=== PATIENT | female | born 1970 | race Caucasian/White ===

== ENCOUNTER 2017-01-31 11:30 | Inpatient (IN) | payer OTHER ==
[2017-01-31 12:19] VITALS: BMI 31.8
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
[2017-01-31] MEDS ORDERED: MENTHOL/PHENOL 1 EACH UD MM PRN (14:10)
[2017-01-31] MEDS ORDERED: MAGNESIUM HYDROX 2400MG/30ML ORAL SUSPENSION 30 ML CUP PO PRN (14:10)
[2017-01-31] MEDS ORDERED: MAG HYDROX/AL HYDROX/SIMETH 30 ML UNIT-DOSE CUP PO PRN (14:10)
[2017-01-31] MEDS ORDERED: ACETAMINOPHEN 325 MG TABLET (FP) PO PRN (14:10)
[2017-01-31] MEDS ORDERED: MAGNESIUM CITRATE 300 ML BOTTLE PO PRN (14:10)
[2017-01-31] MEDS ORDERED: guaiFENesin/D-METHORPHAN HB 10 ML UNIT-DOSE CUPS PO PRN (14:10)
[2017-01-31] MEDS ORDERED: hydrOXYzine PAMOATE 50 MG CAPSULE (FP) PO PRN (14:10)
[2017-01-31] MEDS ORDERED: P-EPHED 60MG/TRIPROLIDI 2.5MG TABLET PO PRN (14:10)
[2017-01-31] MEDS ORDERED: LOPERAMIDE HCL 2 MG CAPSULE PO PRN (14:10)
[2017-01-31] MEDS ORDERED: IBUPROFEN 400 MG TABLET (FP) PO PRN (14:10)
[2017-01-31] MEDS ORDERED: NICOTINE POLACRILEX 4 MG GUM BUC PRN (14:10)
[2017-01-31] MEDS ORDERED: METHADONE HCL 10 MG TABLET (FOR DETOX USE ONLY) PO ONE ×2 (14:46→23:00)
--- NOTE | 2017-01-31 15:42 | CONSULT ---
[facility] Psychiatric Consult - Data Date of interview: 01/31/17 Admission source: [facility] Identifying data: This is 46 years old [place] with no psychiatric hospitalization history intoxicatewd with: Opioids, Klonopin and Nicotine Substance Abuse History: - Smoking Cessation. Smoking history: Current every day smoker. Have you smoked in the past 12 months: Yes. Aproximately how many cigarettes per day: 4. Hx Chewing Tobacco Use: No. Initiated information on smoking cessation: Yes. 'Breaking Loose' booklet given: 01/31/17. - Substance & Tx. History. Hx Alcohol Use: No. Hx Substance Use: Yes. Substance Use Type : Heroin Medical History: Denies significant medical issues Psychiatric History: Patient reports history of depression and anaxiety, reports taking prior to admikssion: Prozac 20mg poqd Physical/Sexual Abuse/Trauma History: Denies Additional Comment: Prozac 20mg poqd Mental Status Exam - Mental Status Exam Alert and Oriented to: Person Cognitive Function: Fair Patient Appearance: Well Groomed Mood: Anxious Affect: Mood Congruent Patient Behavior: Cooperative Speech Pattern: Appropriate Voice Loudness: Normal Thought Process: Goal Oriented Thought Disorder: Being Controlled Hallucinations: Denies Suicidal Ideation: Denies Homicidal Ideation: Denies Insight/Judgement: Fair Sleep: Difficulty falling asleep Appetite: Weight gain Muscle strength/Tone: Normal Gait/Station: Normal Additional Comments: Prozac 20mg poqd Psychiatric Findings - Problem List ([place] 1, 2,3) (1) Nicotine dependence Current Visit: Yes Status: Chronic Qualifiers: Nicotine product type: cigarettes Substance use status: uncomplicated Qualified Code(s): F17.210 - Nicotine dependence, cigarettes, uncomplicated (2) Opioid dependence with withdrawal Current Visit: Yes Status: Chronic (3) Cocaine dependence Current Visit: No Status: Active (4) Drug-induced mood disorder Current Visit: Yes Status: Acute - Initial Treatment Plan Initial Treatment Plan: Prozac 20mg poqd
[2017-01-31] MEDS: diazePAM 5 MG TABLET PO PRN (15:55)
[2017-01-31 18:08] LABS: URINE APPEARANCE CLEAR; URINE BILIRUBIN NEGATIVE (NEGATIVE); URINE BLOOD NEGATIVE (NEGATIVE); URINE COLOR STRAW; URINE GLUCOSE (UA) NEGATIVE (NEGATIVE); URINE KETONE NEGATIVE (NEGATIVE); URINE LEUK ESTERASE NEGATIVE (NEGATIVE); URINE NITRITE NEGATIVE (NEGATIVE); URINE PROTEIN NEGATIVE (NEGATIVE); URINE UROBILINOGEN NEGATIVE E.U./dl (0.2-1.0)
[2017-01-31] MEDS: BACITRACIN 0.9 GM PACKET TP SCH (22:15)
[2017-01-31] MEDS: THIAMINE HCL 100 MG TABLET (FP) PO SCH (22:16)
[2017-01-31] MEDS: diphenhydrAMINE HCL 50 MG CAPSULE PO PRN (22:17)
[2017-01-31] MEDS: VITAMINS A AND D TOPICAL OINTMENT 60 GM TUBE TP SCH (22:39)
[2017-02-01] MEDS: VITAMINS A AND D TOPICAL OINTMENT 60 GM TUBE TP SCH ×5 (01:05→23:09)
[2017-02-01] MEDS ORDERED: METHADONE HCL 10 MG TABLET (FOR DETOX USE ONLY) PO ONE (10:00)
[2017-02-01 10:10] LABS: MCH 22.3 pg (25.7-33.7); MCHC 30.4 g/dl (32.0-36.0); MEAN CELL VOLUME 73.4 fl (80-96); MEAN PLT VOLUME 8.9 fl (7.5-11.1); PLATELET COUNT 265 K/MM3 (134-434); WHITE BLOOD COUNT 8.1 K/mm3 (4.0-10.0)
[2017-02-01] MEDS: NICOTINE 21 MG/24 HOURS TOPICAL PATCH TD SCH (10:25)
[2017-02-01] MEDS: BACITRACIN 0.9 GM PACKET TP SCH ×2 (10:25→23:09)
[2017-02-01] MEDS: PRENATAL VITAMINS W/ FOLIC ACID TABLET (FP) PO SCH (10:25)
[2017-02-01] MEDS ORDERED: CYCLOBENZAPRINE HCL 10 MG TABLET (FP) PO PRN (10:34)
--- NOTE | 2017-02-01 10:34 | PN ---
S COWS - Scale Resting Pulse: 0= [place] 80 or Below Sweatin=Flushed/Facial Moisture Restless Observation: 1= Difficult to Sit Still Pupil Size: 0= Normal to Room Light Bone or Joint Aches: 2= Severe Diffuse Aches Runny Nose/ Eye Tearin= Runny Nose/Eyes GI Upset > 30mins: 2= Nausea/Diarrhea Tremor Observation of Outstretched Hands: 2= Slight Tremor Visible Yawning Observation: 2= >3x During Session Anxiety or Irritability: 2=Irritable/Anxious Goose Flesh Skin: 3=Piloerection COWS Score: 18 S Progress Note (SOAP) Subjective: ear clogged sweats shakes interrupted sleep chills muscle cramps back pain Objective: 02/01/17 10:33 Vital Signs Temperature 96.8 F L 02/01/17 06:53 Pulse Rate 60 02/01/17 06:53 Respiratory Rate 18 02/01/17 06:53 Blood Pressure 124/76 02/01/17 06:53 O2 Sat by Pulse Oximetry (%) Laboratory Tests 01/31/17 14:00 Urine Color Straw Urine Appearance Clear Urine pH 6.0 Ur Specific [place] 1.004 Urine Protein Negative Urine Glucose (UA) Negative Urine Ketones Negative Urine Blood Negative Urine Nitrite Negative Urine Bilirubin Negative Urine Urobilinogen Negative Ur Leukocyte Esterase Negative labs pending awake/alert ambulating no acute distress Assessment: 02/01/17 10:33 withdrawal sx Plan: continue detox increase fluids labs pending flexiril prn lidocaine patch debrox ear drops
[2017-02-01] MEDS: LIDOCAINE 5% TOPICAL PATCH TP SCH (10:59)
[2017-02-01 11:06] LABS: ALBUMIN 3.8 g/dl (3.4-5.0); ALK PHOS 75 U/L (45-117); ANION GAP 8 (8-16); BILIRUBIN,TOTAL 0.3 mg/dL (0.2-1.0); CALCIUM 8.4 mg/dL (8.5-10.1); CO2 25 mmol/L (21-32); CREATININE 0.7 mg/dL (0.55-1.02); GLUCOSE,RANDOM 82 mg/dL (74-106); SGOT/AST 13 U/L (15-37); SGPT/ALT 18 U/L (12-78); TOT PROT 7.5 g/dl (6.4-8.2)
[2017-02-01 11:24] LABS: HIV 1 & 2 AB NEGATIVE; HIV 1 AGp24 NEGATIVE
[2017-02-01] MEDS: CARBAMIDE PEROXIDE 6.5% OTIC 15 ML BOTTLE AU SCH ×2 (12:00→23:10)
[2017-02-01] MEDS: THIAMINE HCL 100 MG TABLET (FP) PO SCH (23:09)
[2017-02-02] MEDS: VITAMINS A AND D TOPICAL OINTMENT 60 GM TUBE TP SCH ×4 (06:50→23:38)
--- NOTE | 2017-02-02 08:28 | EKG ---
Test Reason : Blood Pressure : / mmHG Vent. Rate : 061 BPM Atrial Rate : 061 BPM P-R Int : 130 ms QRS Dur : 082 ms QT Int : 476 ms P-R-T Axes : 058 -11 025 degrees QTc Int : 479 ms NORMAL SINUS RHYTHM NORMAL ECG NO PREVIOUS ECGS AVAILABLE Confirmed by KRISTINE HALL MD ([id number]) on 02/02/2017 8:27:39 AM Referred By: Confirmed By:KRISTINE HALL MD
[2017-02-02] MEDS ORDERED: METHADONE HCL 5 MG TABLET (FOR DETOX USE ONLY) PO ONE (10:00)
[2017-02-02] MEDS: CARBAMIDE PEROXIDE 6.5% OTIC 15 ML BOTTLE AU SCH ×2 (10:00→22:29)
[2017-02-02] MEDS: diazePAM 5 MG TABLET PO PRN (10:23)
[2017-02-02] MEDS: PRENATAL VITAMINS W/ FOLIC ACID TABLET (FP) PO SCH (10:23)
[2017-02-02] MEDS: BACITRACIN 0.9 GM PACKET TP SCH ×2 (10:23→22:29)
[2017-02-02] MEDS: NICOTINE 21 MG/24 HOURS TOPICAL PATCH TD SCH (10:24)
--- NOTE | 2017-02-02 11:04 | PN ---
BHS COWS - Scale Resting Pulse: 0= [place] 80 or Below Sweatin=Flushed/Facial Moisture Restless Observation: 1= Difficult to Sit Still Pupil Size: 1= Pupils >than Normal Bone or Joint Aches: 2= Severe Diffuse Aches Runny Nose/ Eye Tearin= Nasal Congestion GI Upset > 30mins: 2= Nausea/Diarrhea Tremor Observation of Outstretched Hands: 2= Slight Tremor Visible Yawning Observation: 1= 1-2x During Session Anxiety or Irritability: 2=Irritable/Anxious Goose Flesh Skin: 0=Smooth Skin COWS Score: 14 BHS Progress Note (SOAP) Subjective: interrupted sleep, nausea, lbp, leg pains Objective: 02/02/17 11:03 Vital Signs Temperature 97.9 F 02/02/17 06:39 Pulse Rate 71 02/02/17 10:22 Respiratory Rate 18 02/02/17 10:22 Blood Pressure 124/68 02/02/17 10:22 O2 Sat by Pulse Oximetry (%) Laboratory Tests 01/31/17 01/31/17 02/01/17 06:00 14:00 06:00 WBC 8.1 D RBC 3.92 Hgb 8.7 L Hct 28.7 L MCV 73.4 L MCHC 30.4 L RDW 18.0 H D Plt Count 265 D MPV 8.9 Sodium Potassium Chloride Carbon Dioxide Anion Gap BUN Creatinine Creat Clearance w eGFR Random Glucose Calcium Total Bilirubin AST ALT Alkaline Phosphatase Total Protein Albumin Urine Color Straw Urine Appearance Clear Urine pH 6.0 Ur Specific [place] 1.004 Urine Protein Negative Urine Glucose (UA) Negative Urine Ketones Negative Urine Blood Negative Urine Nitrite Negative Urine Bilirubin Negative Urine Urobilinogen Negative Ur Leukocyte Esterase Negative RPR Titer HIV 1&2 Antibody Screen Negative HIV P24 Antigen Negative 02/01/17 02/01/17 06:00 06:00 WBC RBC Hgb Hct MCV MCHC RDW Plt Count MPV Sodium 139 Potassium 3.6 Chloride 106 Carbon Dioxide 25 Anion Gap 8 BUN 14 D Creatinine 0.7 Creat Clearance w eGFR > 60 Random Glucose 82 Calcium 8.4 L Total Bilirubin 0.3 D AST 13 L ALT 18 Alkaline Phosphatase 75 Total Protein 7.5 Albumin 3.8 Urine Color Urine Appearance Urine pH Ur Specific [place] Urine Protein Urine Glucose (UA) Urine Ketones Urine Blood Urine Nitrite Urine Bilirubin Urine Urobilinogen Ur Leukocyte Esterase RPR Titer Nonreactive HIV 1&2 Antibody Screen HIV P24 Antigen pt aox3 in nad ambulating Assessment: 02/02/17 11:03 withdrawal sx;s Plan: cont. detox increase fluids flexeril 10mg tid clonidine 0.1 mg bid
[2017-02-02] MEDS: LIDOCAINE 5% TOPICAL PATCH TP SCH (11:35)
[2017-02-02] MEDS: THIAMINE HCL 100 MG TABLET (FP) PO SCH (22:28)
[2017-02-02] MEDS: diphenhydrAMINE HCL 50 MG CAPSULE PO PRN (22:30)
[2017-02-03] MEDS: VITAMINS A AND D TOPICAL OINTMENT 60 GM TUBE TP SCH (05:37)
[2017-02-03] MEDS: diazePAM 5 MG TABLET PO PRN (05:41)
[2017-02-03 09:38] VITALS: BP 107/50; PULSE 80; TEMP 98.2
[2017-02-03] MEDS ORDERED: METHADONE HCL 5 MG TABLET (FOR DETOX USE ONLY) PO ONE (10:00)
[2017-02-03] MEDS: PRENATAL VITAMINS W/ FOLIC ACID TABLET (FP) PO SCH (10:22)
[2017-02-03] MEDS: LIDOCAINE 5% TOPICAL PATCH TP SCH (10:23)
[2017-02-03] MEDS: BACITRACIN 0.9 GM PACKET TP SCH (10:23)
[2017-02-03] MEDS: NICOTINE 21 MG/24 HOURS TOPICAL PATCH TD SCH (10:23)
[2017-02-03] MEDS: CARBAMIDE PEROXIDE 6.5% OTIC 15 ML BOTTLE AU SCH (10:23)
--- NOTE | 2017-02-03 11:32 | DS ---
[facility] Detox Discharge Summary Admission Date: 01/31/17 Discharge Date: 02/03/17 - History Present History: Opioid Dependence - Physical Exam Results Vital Signs: Vital Signs Temperature 98.2 F 02/03/17 09:37 Pulse Rate 80 02/03/17 09:37 Respiratory Rate 18 02/03/17 09:37 Blood Pressure 107/50 02/03/17 09:37 O2 Sat by Pulse Oximetry (%) - Treatment Hospital Course: Detox Protocol Followed, Detoxed Safely, Responded well, Discharged Condition Good, Rehab Referral Accepted - Medication Discharge Medications: Ambulatory Orders Fluoxetine HCl [Prozac -] 20 mg PO DAILY 01/31/17 - Diagnosis (1) Opioid dependence with withdrawal Status: Chronic (2) Nicotine dependence Status: Chronic Qualifiers: Nicotine product type: cigarettes Substance use status: uncomplicated Qualified Code(s): F17.210 - Nicotine dependence, cigarettes, uncomplicated (3) Skin lesions Status: Acute - AMA Did Patient Leave Against Medical Advice: Yes
[2017-02-04] MEDS ORDERED: METHADONE HCL 10 MG TABLET (FOR DETOX USE ONLY) PO ONE (10:00)
[2017-02-05] MEDS ORDERED: METHADONE HCL 5 MG TABLET (FOR DETOX USE ONLY) PO ONE (06:00)
== END 2017-02-03 11:10 | disposition left against medical advice (07) | DRG 770 ==
LOC: YASAS 11:30 → Y6N 14:38
PROVIDERS: ADMIT Internal Medicine Addiction Medicine; ATTEND Internal Medicine Addiction Medicine
PROC: HZ2ZZZZ Detoxification Services for Substance Abuse Treatment (ICD-10-PCS; principal; 2017-01-31)
DX: F11.23 Opioid dependence with withdrawal (principal); F14.20 Cocaine dependence, uncomplicated; F17.210 Nicotine dependence, cigarettes, uncomplicated; F19.24 Other psychoactive substance dependence with psychoactive substance-induced mood disorder; L98.9 Disorder of the skin and subcutaneous tissue, unspecified
CPT/HCPCS: 36415; 80053; 81003; 85027; 86593; 87389; 93005; 93010

== ENCOUNTER 2018-09-11 09:11 | Inpatient (IN) | payer OTHER ==
[2018-09-11 09:46] VITALS: BMI 27.2
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
[2018-09-11] MEDS ORDERED: MAGNESIUM HYDROX 2400MG/30ML ORAL SUSPENSION 30 ML CUP PO PRN (10:07)
[2018-09-11] MEDS ORDERED: hydrOXYzine PAMOATE 25 MG CAPSULE (FP) PO PRN (10:07)
[2018-09-11] MEDS ORDERED: LOPERAMIDE HCL 2 MG CAPSULE PO PRN (10:07)
[2018-09-11] MEDS ORDERED: P-EPHED 60MG/TRIPROLIDI 2.5MG TABLET PO PRN (10:07)
[2018-09-11] MEDS ORDERED: MENTHOL/PHENOL 1 EACH UD MM PRN (10:07)
[2018-09-11] MEDS ORDERED: MAG HYDROX/AL HYDROX/SIMETH 30 ML UNIT-DOSE CUP PO PRN (10:07)
[2018-09-11] MEDS ORDERED: MAGNESIUM CITRATE 300 ML BOTTLE PO PRN (10:07)
[2018-09-11] MEDS ORDERED: chlordiazePOXIDE HCL 25 MG CAPSULE PO PRN (10:07)
[2018-09-11] MEDS ORDERED: IBUPROFEN 400 MG TABLET (FP) PO PRN (10:07)
[2018-09-11] MEDS: CYCLOBENZAPRINE HCL 10 MG TABLET (FP) PO PRN (11:29)
[2018-09-11] MEDS: cloNIDine HCL 0.1 MG TABLET PO SCH ×2 (11:30→22:53)
[2018-09-11] MEDS: NICOTINE 21 MG/24 HOURS TOPICAL PATCH TD SCH (11:30)
[2018-09-11] MEDS ORDERED: METHADONE HCL 10 MG TABLET (FOR DETOX USE ONLY) PO ONE ×2 (11:30→23:00)
[2018-09-11] MEDS: HYDROCORTISONE 0.5% TOPICAL CREAM 30 GM TUBE TP SCH ×2 (11:35→22:52)
[2018-09-11] MEDS: chlordiazePOXIDE HCL 25 MG CAPSULE PO SCH ×2 (17:37→22:53)
[2018-09-11] MEDS ORDERED: MELATONIN 5 MG TABLETS PO PRN (22:00)
[2018-09-11] MEDS: THIAMINE HCL 100 MG TABLET (FP) PO SCH (22:52)
[2018-09-12] MEDS: chlordiazePOXIDE HCL 25 MG CAPSULE PO SCH ×4 (05:57→22:23)
[2018-09-12 09:51] LABS: HEMATOCRIT 27.1 % (32.4-45.2); MCH 20.7 pg (25.7-33.7); MCHC 29.6 g/dl (32.0-36.0); MEAN CELL VOLUME 69.9 fl (80-96); MEAN PLT VOLUME 9.6 fl (7.5-11.1); PLATELET COUNT 237 K/MM3 (134-434); RBC 3.88 M/mm3 (3.60-5.2); RDW 18.7 % (11.6-15.6); WHITE BLOOD COUNT 5.5 K/mm3 (4.0-10.0)
[2018-09-12] MEDS ORDERED: METHADONE HCL 10 MG TABLET (FOR DETOX USE ONLY) PO SCH (10:00)
[2018-09-12] MEDS: PRENATAL VITAMINS W/ FOLIC ACID TABLET (FP) PO SCH (10:25)
[2018-09-12] MEDS: NICOTINE 21 MG/24 HOURS TOPICAL PATCH TD SCH (10:25)
[2018-09-12] MEDS: HYDROCORTISONE 0.5% TOPICAL CREAM 30 GM TUBE TP SCH ×2 (10:26→22:22)
[2018-09-12] MEDS: cloNIDine HCL 0.1 MG TABLET PO SCH ×2 (10:27→22:23)
[2018-09-12 10:45] LABS: ALBUMIN 3.5 g/dl (3.4-5.0); ALK PHOS 63 U/L (45-117); ANION GAP 10 MMOL/L (8-16); BILIRUBIN,TOTAL 0.7 mg/dL (0.2-1); BLOOD UREA NITROGEN 12 mg/dL (7-18); CALCIUM 8.6 mg/dL (8.5-10.1); CHLORIDE 106 mmol/L (98-107); CO2 24 mmol/L (21-32); CREATININE 0.9 mg/dL (0.55-1.3); GLUCOSE,RANDOM 150 mg/dL (74-106); POTASSIUM 3.9 mmol/L (3.5-5.1); SGOT/AST 16 U/L (15-37); SGPT/ALT 20 U/L (13-61); SODIUM 140 mmol/L (136-145); TOT PROT 7.3 g/dl (6.4-8.2)
--- NOTE | 2018-09-12 14:35 | CONSULT ---
[facility] Psychiatric Consult - Data Date of interview: 09/12/18 Admission source: [facility] Identifying data: Readmission to [facility] for this 48 y/o female seeking detoxification treatment on for heroin, cocaine (crack) and alcohol dependence. Patient is , a mother of six, domiciled, unemployed and supported on SSI benefits. Substance Abuse History: Confirmed by the patient in this session. Details in current [facility] report : Smoking history: Current every day smoker. Have you smoked in the past 12 months: Yes. Aproximately how many cigarettes per day: 6. Hx Chewing Tobacco Use: No. Initiated information on smoking cessation: Yes. 'Breaking Loose' booklet given: 09/11/18. - Substance & Tx. History. Hx Alcohol Use: Yes. Hx Substance Use: Yes. Substance Use Type: Alcohol, Cocaine , Heroin. Hx Substance Use Treatment: Yes ([facility] 01/31/27 to 02/03/17 not completed). - Substances Abused. Heroin. Route: Inhalation. Frequency: Daily. Amount used: 20 bags. Age of first use: 45. Date of Last Use: . Cocaine. Route: Smoking. Frequency: Daily. Amount used: 100$. Age of first use: 32. Date of Last Use: 09/10/18. Alcohol. Route: Oral. Frequency: Daily. Amount used: 1 pint of liquor/6 packs of 12 ozs of beer. Age of first use: 17. Date of Last Use: 09/10/18 Medical History: History of orthosurgery (fracture of right wrist + right elbow in 2006). Psychiatric History: Onset of psychiatric disturbances : 2008. Patient reports a history of one psychiatric hospitalization at [facility] (2012 ). Diagnosed with Bipolar Disorder. Treated in the past with paroxetine, clonazepam and zolpidem. Ms Casanova declares that she dropped out of treatment months ago (ignored appointments to [facility]PD clinic). Kept on getting refills for fluoxetine (20 mg/day) from a primary care practitioner. Denies history of suicide attempts. Physical/Sexual Abuse/Trauma History: Not discussed. Patient declined. Additional Comment: Urine Drug Screen Results: CORI-Cocaine, OPI-Opiates, FEN- Fentanyl. Noted. Mental Status Exam - Mental Status Exam Alert and Oriented to: Time, Place, Person Cognitive Function: Good Patient Appearance: Unkempt, Disheveled Mood: Withdrawn, Irritable Affect: Mood Congruent, Constricted Patient Behavior: Fatigued, Cooperative Speech Pattern: Clear, Appropriate Voice Loudness: Normal Thought Process: Goal Oriented Thought Disorder: Not Present Hallucinations: Denies Suicidal Ideation: Denies Homicidal Ideation: Denies Insight/Judgement: Poor Sleep: Well Appetite: Good Gait/Station: Other (not observed at time of examination ; patient did not get out of bed) Psychiatric Findings - Problem List ([place] 1, 2,3) (1) Opioid dependence with withdrawal Current Visit: Yes Status: Acute (2) Alcohol dependence with uncomplicated withdrawal Current Visit: Yes Status: Acute (3) Cocaine dependence Current Visit: Yes Status: Chronic (4) Nicotine dependence Current Visit: Yes Status: Chronic Qualifiers: Nicotine product type: cigarettes Substance use status: uncomplicated Qualified Code(s): F17.210 - Nicotine dependence, cigarettes, uncomplicated (5) Drug-induced mood disorder Current Visit: Yes Status: Acute - Initial Treatment Plan Initial Treatment Plan: Psychoeducation. Sleep hygiene. Detoxification in progress. AA/NA meetings. Will not restart fluoxetine at this time. Review of pharmacy claims indicates no activity from [facility] since March 2018 (confirmed by pharmacist at [phone]). AA/NA eetings. Motivational sessions. Observation.
--- NOTE | 2018-09-12 16:15 | PN ---
[facility] CIWA - CIWA Score Nausea/Vomitin Muscle Tremors: 4-Moderate,w/Arms Extend Anxiety: 4-Mod. Anxious/Guarded Agitation: 4-Moderately Restless Paroxysmal Sweats: 3 Orientation: 0-Oriented Tacttile Disturbances: 0-None Auditory Disturbances: 0-None Visual Disturbances: 0-None Headache: 0-None Present CIWA-Ar Total Score: 18 S COWS - Scale Resting Pulse: 0= [place] 80 or Below Sweatin= Chills/Flushing Restless Observation: 3= Extraneous Movement Pupil Size: 0= Normal to Room Light Bone or Joint Aches: 2= Severe Diffuse Aches Runny Nose/ Eye Tearin= Runny Nose/Eyes GI Upset > 30mins: 3= Vomiting/Diarrhea Tremor Observation of Outstretched Hands: 2= Slight Tremor Visible Yawning Observation: 1= 1-2x During Session Anxiety or Irritability: 2=Irritable/Anxious Goose Flesh Skin: 0=Smooth Skin COWS Score: 16 [facility] Progress Note (SOAP) Subjective: Sweating, interrupted sleep, chills Objective: 09/12/18 16:12 Last Vital Signs Temp Pulse Resp BP Pulse Ox 97.9 F 60 18 98/63 09/12/18 13:00 09/12/18 13:00 09/12/18 13:00 09/12/18 13:00 Laboratory Tests 09/11/18 09/12/18 09/12/18 10:30 06:00 06:00 WBC 5.5 RBC 3.88 Hgb 8.0 L Hct 27.1 L MCV 69.9 L MCH 20.7 L MCHC 29.6 L RDW 18.7 H Plt Count 237 MPV 9.6 Sodium 140 Potassium 3.9 Chloride 106 Carbon Dioxide 24 Anion Gap 10 BUN 12 Creatinine 0.9 Creat Clearance w eGFR > 60 Random Glucose 150 H Calcium 8.6 Total Bilirubin 0.7 AST 16 ALT 20 Alkaline Phosphatase 63 Total Protein 7.3 Albumin 3.5 RPR Titer HIV 1&2 Antibody Screen Negative HIV P24 Antigen Negative 09/12/18 06:00 WBC RBC Hgb Hct MCV MCH MCHC RDW Plt Count MPV Sodium Potassium Chloride Carbon Dioxide Anion Gap BUN Creatinine Creat Clearance w eGFR Random Glucose Calcium Total Bilirubin AST ALT Alkaline Phosphatase Total Protein Albumin RPR Titer Nonreactive HIV 1&2 Antibody Screen HIV P24 Antigen Labs reviewed: serum glucose 150 Assessment: 09/12/18 16:13 Withdrawal symptoms Noted with hyperglycemia Plan: Continue detox Hyperglycemia: patient denies DM; will repeat fasting glucose
[2018-09-12] MEDS: THIAMINE HCL 100 MG TABLET (FP) PO SCH (22:22)
[2018-09-13] MEDS: chlordiazePOXIDE HCL 25 MG CAPSULE PO SCH ×2 (05:49→10:33)
--- NOTE | 2018-09-13 09:56 | PN ---
[facility] CIWA - CIWA Score Nausea/Vomitin-Mild Nausea/No Vomiting Muscle Tremors: 4-Moderate,w/Arms Extend Anxiety: 3 Agitation: 3 Paroxysmal Sweats: 1-Minimal Palms Moist Orientation: 0-Oriented (to date of the week) Tacttile Disturbances: 0-None Auditory Disturbances: 1-Very Mild Visual Disturbances: 0-None Headache: 1-Very Mild CIWA-Ar Total Score: 14 S COWS - Scale Resting Pulse: 0= [place] 80 or Below Sweatin= Chills/Flushing Restless Observation: 1= Difficult to Sit Still Pupil Size: 0= Normal to Room Light Bone or Joint Aches: 2= Severe Diffuse Aches Runny Nose/ Eye Tearin= Nasal Congestion GI Upset > 30mins: 2= Nausea/Diarrhea Tremor Observation of Outstretched Hands: 1= Tremor [place], Not Seen Yawning Observation: 1= 1-2x During Session Anxiety or Irritability: 2=Irritable/Anxious Goose Flesh Skin: 0=Smooth Skin COWS Score: 11 [facility] Progress Note (SOAP) Subjective: tremor sweat body aches muscle cramp trouble sleep at night Objective: 09/13/18 09:53 Vital Signs Temperature 97.3 F L 09/13/18 09:22 Pulse Rate 79 09/13/18 09:22 Respiratory Rate 18 09/13/18 09:22 Blood Pressure 106/70 09/13/18 09:22 O2 Sat by Pulse Oximetry (%) Laboratory Last Values WBC 5.5 K/mm3 (4.0-10.0) 09/12/18 06:00 RBC 3.88 M/mm3 (3.60-5.2) 09/12/18 06:00 Hgb 8.0 GM/dL (10.7-15.3) L 09/12/18 06:00 Hct 27.1 % (32.4-45.2) L 09/12/18 06:00 MCV 69.9 fl (80-96) L 09/12/18 06:00 MCH 20.7 pg (25.7-33.7) L 09/12/18 06:00 MCHC 29.6 g/dl (32.0-36.0) L 09/12/18 06:00 RDW 18.7 % (11.6-15.6) H 09/12/18 06:00 Plt Count 237 K/MM3 (134-434) 09/12/18 06:00 MPV 9.6 fl (7.5-11.1) 09/12/18 06:00 Sodium 140 mmol/L (136-145) 09/12/18 06:00 Potassium 3.9 mmol/L (3.5-5.1) 09/12/18 06:00 Chloride 106 mmol/L (98-107) 09/12/18 06:00 Carbon Dioxide 24 mmol/L (21-32) 09/12/18 06:00 Anion Gap 10 MMOL/L (8-16) 09/12/18 06:00 BUN 12 mg/dL (7-18) 09/12/18 06:00 Creatinine 0.9 mg/dL (0.55-1.3) 09/12/18 06:00 Creat Clearance w eGFR > 60 (>60) 09/12/18 06:00 Random Glucose 150 mg/dL (74-106) H 09/12/18 06:00 Calcium 8.6 mg/dL (8.5-10.1) 09/12/18 06:00 Total Bilirubin 0.7 mg/dL (0.2-1) 09/12/18 06:00 AST 16 U/L (15-37) 09/12/18 06:00 ALT 20 U/L (13-61) 09/12/18 06:00 Alkaline Phosphatase 63 U/L (45-117) 09/12/18 06:00 Total Protein 7.3 g/dl (6.4-8.2) 09/12/18 06:00 Albumin 3.5 g/dl (3.4-5.0) 09/12/18 06:00 RPR Titer Nonreactive (NONREACTIVE) 09/12/18 06:00 HIV 1&2 Antibody Screen Negative 09/11/18 10:30 HIV P24 Antigen Negative 09/11/18 10:30 lab noted Assessment: 09/13/18 09:54 withdrawal sx 09/13/18 09:55 low iron Plan: continue detox iron supplement
[2018-09-13] MEDS: HYDROCORTISONE 0.5% TOPICAL CREAM 30 GM TUBE TP SCH ×2 (10:32→22:18)
[2018-09-13] MEDS: METHADONE HCL 5 MG TABLET (FOR DETOX USE ONLY) PO SCH (10:33)
[2018-09-13] MEDS: FERROUS SO4 325 MG TABLET (FP) PO SCH (10:33)
[2018-09-13] MEDS: cloNIDine HCL 0.1 MG TABLET PO SCH ×2 (10:33→22:18)
[2018-09-13] MEDS: PRENATAL VITAMINS W/ FOLIC ACID TABLET (FP) PO SCH (10:33)
[2018-09-13] MEDS: NICOTINE 21 MG/24 HOURS TOPICAL PATCH TD SCH (10:35)
[2018-09-13] MEDS: chlordiazePOXIDE 5 MG CAPSULE PO SCH ×2 (17:25→22:18)
[2018-09-13] MEDS: THIAMINE HCL 100 MG TABLET (FP) PO SCH (22:18)
[2018-09-14] MEDS: chlordiazePOXIDE 5 MG CAPSULE PO SCH ×2 (05:47→10:56)
[2018-09-14] MEDS: PRENATAL VITAMINS W/ FOLIC ACID TABLET (FP) PO SCH (10:55)
[2018-09-14] MEDS: FERROUS SO4 325 MG TABLET (FP) PO SCH (10:56)
[2018-09-14] MEDS: cloNIDine HCL 0.1 MG TABLET PO SCH ×2 (10:56→22:28)
[2018-09-14] MEDS: HYDROCORTISONE 0.5% TOPICAL CREAM 30 GM TUBE TP SCH ×2 (10:56→22:28)
[2018-09-14] MEDS: NICOTINE 21 MG/24 HOURS TOPICAL PATCH TD SCH (10:56)
[2018-09-14] MEDS: METHADONE HCL 5 MG TABLET (FOR DETOX USE ONLY) PO SCH (10:56)
--- NOTE | 2018-09-14 15:29 | PN ---
[facility] Progress Note (SOAP) Subjective: tremor sweat body ache muscle cramping Objective: 09/14/18 15:28 Vital Signs Temperature 98.7 F 09/14/18 10:54 Pulse Rate 80 09/14/18 10:54 Respiratory Rate 18 09/14/18 10:54 Blood Pressure 108/67 09/14/18 10:54 O2 Sat by Pulse Oximetry (%) Laboratory Last Values WBC 5.5 K/mm3 (4.0-10.0) 09/12/18 06:00 RBC 3.88 M/mm3 (3.60-5.2) 09/12/18 06:00 Hgb 8.0 GM/dL (10.7-15.3) L 09/12/18 06:00 Hct 27.1 % (32.4-45.2) L 09/12/18 06:00 MCV 69.9 fl (80-96) L 09/12/18 06:00 MCH 20.7 pg (25.7-33.7) L 09/12/18 06:00 MCHC 29.6 g/dl (32.0-36.0) L 09/12/18 06:00 RDW 18.7 % (11.6-15.6) H 09/12/18 06:00 Plt Count 237 K/MM3 (134-434) 09/12/18 06:00 MPV 9.6 fl (7.5-11.1) 09/12/18 06:00 Sodium 140 mmol/L (136-145) 09/12/18 06:00 Potassium 3.9 mmol/L (3.5-5.1) 09/12/18 06:00 Chloride 106 mmol/L (98-107) 09/12/18 06:00 Carbon Dioxide 24 mmol/L (21-32) 09/12/18 06:00 Anion Gap 10 MMOL/L (8-16) 09/12/18 06:00 BUN 12 mg/dL (7-18) 09/12/18 06:00 Creatinine 0.9 mg/dL (0.55-1.3) 09/12/18 06:00 Creat Clearance w eGFR > 60 (>60) 09/12/18 06:00 Random Glucose 150 mg/dL (74-106) H 09/12/18 06:00 Calcium 8.6 mg/dL (8.5-10.1) 09/12/18 06:00 Total Bilirubin 0.7 mg/dL (0.2-1) 09/12/18 06:00 AST 16 U/L (15-37) 09/12/18 06:00 ALT 20 U/L (13-61) 09/12/18 06:00 Alkaline Phosphatase 63 U/L (45-117) 09/12/18 06:00 Total Protein 7.3 g/dl (6.4-8.2) 09/12/18 06:00 Albumin 3.5 g/dl (3.4-5.0) 09/12/18 06:00 RPR Titer Nonreactive (NONREACTIVE) 09/12/18 06:00 HIV 1&2 Antibody Screen Negative 09/11/18 10:30 HIV P24 Antigen Negative 09/11/18 10:30 lab noted Assessment: 09/14/18 15:29 withdrawal sx Plan: continue detox
[2018-09-14] MEDS: chlordiazePOXIDE HCL 10 MG CAPSULE PO SCH ×2 (17:29→22:28)
[2018-09-14] MEDS: THIAMINE HCL 100 MG TABLET (FP) PO SCH (22:28)
[2018-09-15] MEDS: chlordiazePOXIDE HCL 10 MG CAPSULE PO SCH ×2 (05:36→10:32)
[2018-09-15] MEDS ORDERED: METHADONE HCL 10 MG TABLET (FOR DETOX USE ONLY) PO SCH (10:00)
[2018-09-15] MEDS: PRENATAL VITAMINS W/ FOLIC ACID TABLET (FP) PO SCH (10:32)
[2018-09-15] MEDS: HYDROCORTISONE 0.5% TOPICAL CREAM 30 GM TUBE TP SCH ×2 (10:32→22:01)
[2018-09-15] MEDS: FERROUS SO4 325 MG TABLET (FP) PO SCH (10:32)
[2018-09-15] MEDS: NICOTINE 21 MG/24 HOURS TOPICAL PATCH TD SCH (10:33)
[2018-09-15] MEDS: cloNIDine HCL 0.1 MG TABLET PO SCH ×2 (10:33→22:00)
--- NOTE | 2018-09-15 14:05 | PN ---
[facility] Progress Note Note: PATIENT C/O INTERRUPTED SLEEP BUT FEELS BETTER. Vital Signs Temperature 98.6 F 09/15/18 13:54 Pulse Rate 71 09/15/18 13:54 Respiratory Rate 18 09/15/18 13:54 Blood Pressure 97/62 09/15/18 13:54 O2 Sat by Pulse Oximetry (%) Laboratory Tests 09/11/18 09/12/18 09/12/18 10:30 06:00 06:00 WBC 5.5 RBC 3.88 Hgb 8.0 L Hct 27.1 L MCV 69.9 L MCH 20.7 L MCHC 29.6 L RDW 18.7 H Plt Count 237 MPV 9.6 Sodium 140 Potassium 3.9 Chloride 106 Carbon Dioxide 24 Anion Gap 10 BUN 12 Creatinine 0.9 Creat Clearance w eGFR > 60 Random Glucose 150 H Calcium 8.6 Total Bilirubin 0.7 AST 16 ALT 20 Alkaline Phosphatase 63 Total Protein 7.3 Albumin 3.5 RPR Titer HIV 1&2 Antibody Screen Negative HIV P24 Antigen Negative 09/12/18 06:00 WBC RBC Hgb Hct MCV MCH MCHC RDW Plt Count MPV Sodium Potassium Chloride Carbon Dioxide Anion Gap BUN Creatinine Creat Clearance w eGFR Random Glucose Calcium Total Bilirubin AST ALT Alkaline Phosphatase Total Protein Albumin RPR Titer Nonreactive HIV 1&2 Antibody Screen HIV P24 Antigen PE: ALERT AND ORIENTED X 3 SKIN WARM AND DRY EXT FULL ROM, NO EDEMA, NO TREMORS AMB AD LUAN A/P WITHDRAWAL SX CONTINUE DETOX ENCOURAGE ORAL FLUIDS FOR D/C IN AM CONTINUE TO MONITOR CLINICALLY
[2018-09-15] MEDS: THIAMINE HCL 100 MG TABLET (FP) PO SCH (22:00)
[2018-09-15] MEDS: CYCLOBENZAPRINE HCL 10 MG TABLET (FP) PO PRN (22:00)
[2018-09-16] MEDS ORDERED: METHADONE HCL 5 MG TABLET (FOR DETOX USE ONLY) PO SCH (06:00)
[2018-09-16 06:25] VITALS: BP 92/65; PULSE 66; TEMP 97.5
--- NOTE | 2018-09-16 12:11 | PN ---
[facility] Progress Note (SOAP) Subjective: DETOX COMPLETED. ALERT O X 3. PT REPORTS SHE WILL ATTEND [facility] AND [facility] [employer] [place]. PT REFERRED TO PRIMARY CARE AT [address] [place] [address] FOR MEDICAL MANAGEMENT. Objective: 09/16/18 12:09 Vital Signs 09/16/18 06:24 Temperature 97.5 F L Pulse Rate 66 Respiratory 18 Rate Blood Pressure 92/65 Laboratory Tests 09/11/18 09/12/18 09/12/18 10:30 06:00 06:00 WBC 5.5 RBC 3.88 Hgb 8.0 L Hct 27.1 L MCV 69.9 L MCH 20.7 L MCHC 29.6 L RDW 18.7 H Plt Count 237 MPV 9.6 Sodium 140 Potassium 3.9 Chloride 106 Carbon Dioxide 24 Anion Gap 10 BUN 12 Creatinine 0.9 Creat Clearance w eGFR > 60 Random Glucose 150 H Calcium 8.6 Total Bilirubin 0.7 AST 16 ALT 20 Alkaline Phosphatase 63 Total Protein 7.3 Albumin 3.5 RPR Titer HIV 1&2 Antibody Screen Negative HIV P24 Antigen Negative 09/12/18 06:00 WBC RBC Hgb Hct MCV MCH MCHC RDW Plt Count MPV Sodium Potassium Chloride Carbon Dioxide Anion Gap BUN Creatinine Creat Clearance w eGFR Random Glucose Calcium Total Bilirubin AST ALT Alkaline Phosphatase Total Protein Albumin RPR Titer Nonreactive HIV 1&2 Antibody Screen HIV P24 Antigen Assessment: 09/16/18 12:09 MEDICALLY STABLE Plan: D/C PT TODAY FOLLOW UP WITH [facility]IMARY [facility], PREFERABLY ON 09/18/18 FOLLOW UP WITH [facility] FOR CD TREATMENT PLANNED ON Tuesday09/18/18
--- NOTE | 2018-09-16 12:13 | DS ---
[facility] Detox Discharge Summary Admission Date: 09/11/18 Discharge Date: 09/16/18 - History Present History: Opioid Dependence Pertinent Past History: PLEASE SEE DX BELOW - Physical Exam Results Vital Signs: Vital Signs Temperature 97.5 F L 09/16/18 06:24 Pulse Rate 66 09/16/18 06:24 Respiratory Rate 18 09/16/18 06:24 Blood Pressure 92/65 09/16/18 06:24 O2 Sat by Pulse Oximetry (%) Pertinent Admission Physical Exam Findings: WITHDRAWAL SX Laboratory Tests 09/11/18 09/12/18 09/12/18 10:30 06:00 06:00 WBC 5.5 RBC 3.88 Hgb 8.0 L Hct 27.1 L MCV 69.9 L MCH 20.7 L MCHC 29.6 L RDW 18.7 H Plt Count 237 MPV 9.6 Sodium 140 Potassium 3.9 Chloride 106 Carbon Dioxide 24 Anion Gap 10 BUN 12 Creatinine 0.9 Creat Clearance w eGFR > 60 Random Glucose 150 H Calcium 8.6 Total Bilirubin 0.7 AST 16 ALT 20 Alkaline Phosphatase 63 Total Protein 7.3 Albumin 3.5 RPR Titer HIV 1&2 Antibody Screen Negative HIV P24 Antigen Negative 09/12/18 06:00 WBC RBC Hgb Hct MCV MCH MCHC RDW Plt Count MPV Sodium Potassium Chloride Carbon Dioxide Anion Gap BUN Creatinine Creat Clearance w eGFR Random Glucose Calcium Total Bilirubin AST ALT Alkaline Phosphatase Total Protein Albumin RPR Titer Nonreactive HIV 1&2 Antibody Screen HIV P24 Antigen - Treatment Hospital Course: Detox Protocol Followed, Detoxed Safely, Responded well, Discharged Condition Good - Medication Discharge Medications: Ambulatory Orders Fluoxetine HCl [Prozac -] 20 mg PO DAILY 01/31/17 Clonazepam [Klonopin] 1 mg PO TID 09/11/18 Ferrous Sulfate [Feosol] 325 mg PO DAILY #30 ud 09/16/18 - Diagnosis (1) Alcohol dependence with uncomplicated withdrawal Status: Acute (2) Opioid dependence with withdrawal Status: Acute (3) Cocaine dependence Status: Chronic (4) Nicotine dependence Status: Acute Qualifiers: Nicotine product type: cigarettes Substance use status: in withdrawal Qualified Code(s): F17.213 - Nicotine dependence, cigarettes, with withdrawal (5) Anemia Status: Acute Qualifiers: Anemia type: iron deficiency - AMA Did Patient Leave Against Medical Advice: No
== END 2018-09-16 08:49 | disposition home or self-care (01) | DRG 773 ==
LOC: YASAS 09:11 → Y3N 10:26
PROC: HZ2ZZZZ Detoxification Services for Substance Abuse Treatment (ICD-10-PCS; principal; 2018-09-11)
DX: F11.23 Opioid dependence with withdrawal (principal); F10.230 Alcohol dependence with withdrawal, uncomplicated; F14.20 Cocaine dependence, uncomplicated; F17.213 Nicotine dependence, cigarettes, with withdrawal; F31.9 Bipolar disorder, unspecified; F19.24 Other psychoactive substance dependence with psychoactive substance-induced mood disorder; D50.9 Iron deficiency anemia, unspecified; G47.00 Insomnia, unspecified; R63.4 Abnormal weight loss; Z68.27 Body mass index [BMI] 27.0-27.9, adult
CPT/HCPCS: 36415; 80053; 85027; 86593; 87389; J0735

== ENCOUNTER 2018-10-21 09:49 | Inpatient (IN) | payer OTHER ==
[2018-10-21 10:59] VITALS: BMI 28.2
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
[2018-10-21] MEDS ORDERED: MAGNESIUM HYDROX 2400MG/30ML ORAL SUSPENSION 30 ML CUP PO PRN (13:40)
[2018-10-21] MEDS ORDERED: P-EPHED 60MG/TRIPROLIDI 2.5MG TABLET PO PRN (13:40)
[2018-10-21] MEDS ORDERED: ACETAMINOPHEN 325 MG TABLET (FP) PO PRN (13:40)
[2018-10-21] MEDS ORDERED: MENTHOL/PHENOL 1 EACH UD MM PRN (13:40)
[2018-10-21] MEDS ORDERED: LOPERAMIDE HCL 2 MG CAPSULE PO PRN (13:40)
[2018-10-21] MEDS ORDERED: guaiFENesin/D-METHORPHAN HB 10 ML UNIT-DOSE CUPS PO PRN (13:40)
[2018-10-21] MEDS ORDERED: MAG HYDROX/AL HYDROX/SIMETH 30 ML UNIT-DOSE CUP PO PRN (13:40)
[2018-10-21] MEDS ORDERED: NICOTINE POLACRILEX 4 MG GUM BUC PRN (13:40)
[2018-10-21] MEDS ORDERED: MAGNESIUM CITRATE 300 ML BOTTLE PO PRN (13:40)
[2018-10-21] MEDS ORDERED: METHADONE HCL 10 MG TABLET (FOR DETOX USE ONLY) PO ONE ×2 (16:30→23:00)
[2018-10-21] MEDS: diazePAM 5 MG TABLET PO PRN (18:46)
[2018-10-21] MEDS: THIAMINE HCL 100 MG TABLET (FP) PO SCH (22:36)
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
[2018-10-22] MEDS ORDERED: METHADONE HCL 10 MG TABLET (FOR DETOX USE ONLY) PO ONE (10:00)
[2018-10-22 10:52] LABS: HEMATOCRIT 26.6 % (32.4-45.2); HEMOGLOBIN 7.9 GM/dL (10.7-15.3); MCH 21.3 pg (25.7-33.7); MCHC 29.7 g/dl (32.0-36.0); MEAN CELL VOLUME 71.7 fl (80-96); MEAN PLT VOLUME 8.9 fl (7.5-11.1); PLATELET COUNT 196 K/MM3 (134-434); RBC 3.71 M/mm3 (3.60-5.2); RDW 18.8 % (11.6-15.6); WHITE BLOOD COUNT 4.2 K/mm3 (4.0-10.0)
[2018-10-22 10:53] LABS: ALK PHOS 55 U/L (45-117); ANION GAP 6 MMOL/L (8-16); BILIRUBIN,TOTAL 0.4 mg/dL (0.2-1); BLOOD UREA NITROGEN 21 mg/dL (7-18); CALCIUM 8.4 mg/dL (8.5-10.1); CHLORIDE 112 mmol/L (98-107); CO2 26 mmol/L (21-32); CREATININE 0.7 mg/dL (0.55-1.3); GLUCOSE,RANDOM 84 mg/dL (74-106); POTASSIUM 3.9 mmol/L (3.5-5.1); SGOT/AST 9 U/L (15-37); SGPT/ALT 18 U/L (13-61); SODIUM 144 mmol/L (136-145); TOT PROT 6.7 g/dl (6.4-8.2)
[2018-10-22] MEDS: HYDROCORTISONE 0.5% TOPICAL CREAM 30 GM TUBE TP PRN (11:34)
[2018-10-22] MEDS: PRENATAL VITAMINS W/ FOLIC ACID TABLET (FP) PO SCH (11:34)
[2018-10-22] MEDS ORDERED: PNEUMOC 13-VAL CONJ-DIP CRM/PF 0.5 ML DISP.SYRIN IM ONE (12:00)
[2018-10-22] MEDS ORDERED: FLU VACCINE QUAD 60 MCG/0.5 ML (MDV 18-19) IM ONE (12:00)
--- NOTE | 2018-10-22 15:12 | PN ---
[facility] COWS - Scale Resting Pulse: 0= ID 80 or Below Sweatin= Chills/Flushing Restless Observation: 1= Difficult to Sit Still Pupil Size: 1= Pupils >than Normal Bone or Joint Aches: 1= Mild Discomfort Runny Nose/ Eye Tearin= Nasal Congestion GI Upset > 30mins: 1= Stomach Cramp Tremor Observation of Outstretched Hands: 1= Tremor [place], Not Seen Yawning Observation: 1= 1-2x During Session Anxiety or Irritability: 1=Feels Anxious/Irritable Goose Flesh Skin: 0=Smooth Skin COWS Score: 9 [facility] Progress Note (SOAP) Subjective: body aches joints pain muscle cramping otherwise feeling ok Objective: 10/22/18 15:25 Vital Signs Temperature 98.0 F 10/22/18 14:57 Pulse Rate 70 10/22/18 14:57 Respiratory Rate 18 10/22/18 14:57 Blood Pressure 129/83 10/22/18 14:57 O2 Sat by Pulse Oximetry (%) Laboratory Last Values WBC 4.2 K/mm3 (4.0-10.0) 10/22/18 07:50 RBC 3.71 M/mm3 (3.60-5.2) 10/22/18 07:50 Hgb 7.9 GM/dL (10.7-15.3) L 10/22/18 07:50 Hct 26.6 % (32.4-45.2) L 10/22/18 07:50 MCV 71.7 fl (80-96) L 10/22/18 07:50 MCH 21.3 pg (25.7-33.7) L 10/22/18 07:50 MCHC 29.7 g/dl (32.0-36.0) L 10/22/18 07:50 RDW 18.8 % (11.6-15.6) H 10/22/18 07:50 Plt Count 196 K/MM3 (134-434) 10/22/18 07:50 MPV 8.9 fl (7.5-11.1) 10/22/18 07:50 Sodium 144 mmol/L (136-145) 10/22/18 07:50 Potassium 3.9 mmol/L (3.5-5.1) 10/22/18 07:50 Chloride 112 mmol/L (98-107) H 10/22/18 07:50 Carbon Dioxide 26 mmol/L (21-32) 10/22/18 07:50 Anion Gap 6 MMOL/L (8-16) L 10/22/18 07:50 BUN 21 mg/dL (7-18) H 10/22/18 07:50 Creatinine 0.7 mg/dL (0.55-1.3) 10/22/18 07:50 Creat Clearance w eGFR > 60 (>60) 10/22/18 07:50 Random Glucose 84 mg/dL (74-106) 10/22/18 07:50 Calcium 8.4 mg/dL (8.5-10.1) L 10/22/18 07:50 Total Bilirubin 0.4 mg/dL (0.2-1) 10/22/18 07:50 AST 9 U/L (15-37) L 10/22/18 07:50 ALT 18 U/L (13-61) 10/22/18 07:50 Alkaline Phosphatase 55 U/L (45-117) 10/22/18 07:50 Total Protein 6.7 g/dl (6.4-8.2) 10/22/18 07:50 Albumin 3.0 g/dl (3.4-5.0) L 10/22/18 07:50 RPR Titer Nonreactive (NONREACTIVE) 10/22/18 07:50 HIV 1&2 Antibody Screen Preliminary positive 10/22/18 07:50 HIV P24 Antigen Negative 10/22/18 07:50 lab noted low iron Assessment: 10/22/18 15:27 withdrawal sx anemia Plan: continue detox ferrous sulfate 325 mg po bid
[2018-10-22] MEDS: FERROUS SO4 325 MG TABLET (FP) PO SCH (15:46)
[2018-10-22] MEDS: LIDOCAINE 5% TOPICAL PATCH TP SCH (15:58)
[2018-10-23] MEDS: diazePAM 5 MG TABLET PO PRN ×2 (05:43→22:38)
[2018-10-23] MEDS ORDERED: METHADONE HCL 5 MG TABLET (FOR DETOX USE ONLY) PO ONE (10:00)
[2018-10-23] MEDS: LIDOCAINE 5% TOPICAL PATCH TP SCH (10:39)
[2018-10-23] MEDS: FERROUS SO4 325 MG TABLET (FP) PO SCH ×3 (10:39→22:38)
[2018-10-23] MEDS: PRENATAL VITAMINS W/ FOLIC ACID TABLET (FP) PO SCH (10:39)
[2018-10-23] MEDS: hydrOXYzine PAMOATE 25 MG CAPSULE (FP) PO PRN ×2 (10:44→22:39)
--- NOTE | 2018-10-23 11:03 | PN ---
S COWS - Scale Resting Pulse: 0= ID 80 or Below Sweatin=Flushed/Facial Moisture Restless Observation: 0= Sits Still Pupil Size: 0= Normal to Room Light Bone or Joint Aches: 2= Severe Diffuse Aches Runny Nose/ Eye Tearin= Nasal Congestion GI Upset > 30mins: 0= None Tremor Observation of Outstretched Hands: 1= Tremor [place], Not Seen Yawning Observation: 1= 1-2x During Session Anxiety or Irritability: 1=Feels Anxious/Irritable Goose Flesh Skin: 3=Piloerection COWS Score: 11 S Progress Note (SOAP) Subjective: irritable sweats body aches interrupted sleep Objective: 10/23/18 11:00 Vital Signs Temperature 99.9 F H 10/23/18 09:26 Pulse Rate 69 10/23/18 09:26 Respiratory Rate 16 10/23/18 09:26 Blood Pressure 108/59 L 10/23/18 09:26 O2 Sat by Pulse Oximetry (%) Laboratory Tests 10/22/18 10/22/18 10/22/18 07:50 07:50 07:50 WBC 4.2 RBC 3.71 Hgb 7.9 L Hct 26.6 L MCV 71.7 L MCH 21.3 L MCHC 29.7 L RDW 18.8 H Plt Count 196 MPV 8.9 Sodium 144 Potassium 3.9 Chloride 112 H Carbon Dioxide 26 Anion Gap 6 L BUN 21 H Creatinine 0.7 Creat Clearance w eGFR > 60 Random Glucose 84 Calcium 8.4 L Total Bilirubin 0.4 AST 9 L ALT 18 Alkaline Phosphatase 55 Total Protein 6.7 Albumin 3.0 L RPR Titer Nonreactive HIV 1&2 Antibody Screen HIV P24 Antigen 10/22/18 07:50 WBC RBC Hgb Hct MCV MCH MCHC RDW Plt Count MPV Sodium Potassium Chloride Carbon Dioxide Anion Gap BUN Creatinine Creat Clearance w eGFR Random Glucose Calcium Total Bilirubin AST ALT Alkaline Phosphatase Total Protein Albumin RPR Titer HIV 1&2 Antibody Screen Preliminary positive HIV P24 Antigen Negative labs noted confirmatory result pending aaox3 ambulating no acute distress Assessment: 10/23/18 11:01 withdrawal sx Plan: continue detox increase fluids labs pending confirmatory HIV result called [facility] [phone] to speak with Ms. Pritchett however she is off today; will reach out tomorrow to have her speak with pt regarding HIV status.
[2018-10-23] MEDS: THIAMINE HCL 100 MG TABLET (FP) PO SCH ×2 (22:38)
[2018-10-23] MEDS: LIDOCAINE PATCH REMOVAL MC SCH ×2 (22:38)
[2018-10-23] MEDS: MELATONIN 5 MG TABLETS PO PRN (22:39)
[2018-10-24] MEDS ORDERED: METHADONE HCL 5 MG TABLET (FOR DETOX USE ONLY) PO ONE (10:00)
[2018-10-24] MEDS: hydrOXYzine PAMOATE 25 MG CAPSULE (FP) PO PRN ×2 (11:00→22:30)
[2018-10-24] MEDS: LIDOCAINE 5% TOPICAL PATCH TP SCH (11:01)
[2018-10-24] MEDS: FERROUS SO4 325 MG TABLET (FP) PO SCH ×2 (11:01→22:30)
[2018-10-24] MEDS: PRENATAL VITAMINS W/ FOLIC ACID TABLET (FP) PO SCH (11:01)
--- NOTE | 2018-10-24 13:06 | PN ---
[facility] Progress Note (SOAP) Subjective: sweats chills interrupted sleep body aches shakes Objective: 10/24/18 12:57 Vital Signs Temperature 98.1 F 10/24/18 09:27 Pulse Rate 69 10/24/18 09:27 Respiratory Rate 16 10/24/18 09:27 Blood Pressure 98/56 L 10/24/18 09:27 O2 Sat by Pulse Oximetry (%) Laboratory Tests 10/22/18 10/22/18 10/22/18 07:50 07:50 07:50 WBC 4.2 RBC 3.71 Hgb 7.9 L Hct 26.6 L MCV 71.7 L MCH 21.3 L MCHC 29.7 L RDW 18.8 H Plt Count 196 MPV 8.9 Sodium 144 Potassium 3.9 Chloride 112 H Carbon Dioxide 26 Anion Gap 6 L BUN 21 H Creatinine 0.7 Creat Clearance w eGFR > 60 Random Glucose 84 Calcium 8.4 L Total Bilirubin 0.4 AST 9 L ALT 18 Alkaline Phosphatase 55 Total Protein 6.7 Albumin 3.0 L RPR Titer Nonreactive HIV Note HIV 1&2 Antibody Screen HIV P24 Antigen 10/22/18 10/22/18 07:50 07:50 WBC RBC Hgb Hct MCV MCH MCHC RDW Plt Count MPV Sodium Potassium Chloride Carbon Dioxide Anion Gap BUN Creatinine Creat Clearance w eGFR Random Glucose Calcium Total Bilirubin AST ALT Alkaline Phosphatase Total Protein Albumin RPR Titer HIV Note Non-reactive HIV 1&2 Antibody Screen Preliminary positive HIV P24 Antigen Negative aaox3 ambulating no acute distress Assessment: 10/24/18 15:05 withdrawal sx Plan: continue detox increase fluids
[2018-10-24] MEDS: HYDROCORTISONE 0.5% TOPICAL CREAM 30 GM TUBE TP PRN (22:30)
[2018-10-24] MEDS: THIAMINE HCL 100 MG TABLET (FP) PO SCH (22:30)
[2018-10-24] MEDS: LIDOCAINE PATCH REMOVAL MC SCH (22:30)
[2018-10-24] MEDS: MELATONIN 5 MG TABLETS PO PRN (22:31)
[2018-10-25] MEDS ORDERED: METHADONE HCL 10 MG TABLET (FOR DETOX USE ONLY) PO ONE (10:00)
[2018-10-25] MEDS: FERROUS SO4 325 MG TABLET (FP) PO SCH ×2 (10:26→22:32)
[2018-10-25] MEDS: LIDOCAINE 5% TOPICAL PATCH TP SCH (10:26)
[2018-10-25] MEDS: IBUPROFEN 400 MG TABLET (FP) PO PRN (10:27)
[2018-10-25] MEDS: PRENATAL VITAMINS W/ FOLIC ACID TABLET (FP) PO SCH (10:27)
--- NOTE | 2018-10-25 14:10 | PN ---
[facility] Progress Note (SOAP) Subjective: feeling much better sweats Objective: 10/25/18 14:09 Vital Signs Temperature 98.3 F 10/25/18 13:58 Pulse Rate 81 10/25/18 13:58 Respiratory Rate 18 10/25/18 13:58 Blood Pressure 111/72 10/25/18 13:58 O2 Sat by Pulse Oximetry (%) aaox3 ambulating no acute distress Assessment: 10/25/18 14:09 mild withdrawal sx Plan: continue detox d/c in am
[2018-10-25] MEDS: hydrOXYzine PAMOATE 25 MG CAPSULE (FP) PO PRN (22:31)
[2018-10-25] MEDS: THIAMINE HCL 100 MG TABLET (FP) PO SCH (22:31)
[2018-10-25] MEDS: LIDOCAINE PATCH REMOVAL MC SCH (22:34)
[2018-10-25] MEDS: MELATONIN 5 MG TABLETS PO PRN (22:35)
[2018-10-25] MEDS: HYDROCORTISONE 0.5% TOPICAL CREAM 30 GM TUBE TP PRN (22:36)
[2018-10-26] MEDS ORDERED: METHADONE HCL 5 MG TABLET (FOR DETOX USE ONLY) PO ONE (06:00)
[2018-10-26] MEDS: IBUPROFEN 400 MG TABLET (FP) PO PRN (06:09)
[2018-10-26] MEDS: hydrOXYzine PAMOATE 25 MG CAPSULE (FP) PO PRN ×2 (06:09→10:35)
--- NOTE | 2018-10-26 09:06 | DS ---
[facility] Detox Discharge Summary Admission Date: 10/21/18 Discharge Date: 10/26/18 - History Present History: Alcohol Dependence, Cocaine Dependence - Physical Exam Results Vital Signs: Vital Signs Temperature 97.3 F L 10/26/18 08:12 Pulse Rate 70 10/26/18 08:12 Respiratory Rate 18 10/26/18 08:12 Blood Pressure 120/69 10/26/18 08:12 O2 Sat by Pulse Oximetry (%) - Treatment Hospital Course: Detox Protocol Followed, Detoxed Safely, Responded well, Discharged Condition Good, Rehab Referral Accepted - Medication Discharge Medications: Ambulatory Orders Fluoxetine HCl [Prozac -] 20 mg PO DAILY 01/31/17 Clonazepam [Klonopin] 1 mg PO TID 09/11/18 Ferrous Sulfate [Feosol] 325 mg PO DAILY #30 ud 09/16/18 - Diagnosis (1) Cocaine dependence Current Visit: Yes Status: Chronic (2) Opioid dependence with withdrawal Current Visit: Yes Status: Chronic (3) Substance induced mood disorder Current Visit: Yes Status: Acute (4) Substance-induced sleep disorder Current Visit: Yes Status: Acute (5) Bipolar II disorder Current Visit: Yes Status: Chronic (6) Contact dermatitis Current Visit: Yes Status: Chronic Qualifiers: Contact dermatitis type: unspecified (7) Contracture, right elbow Current Visit: Yes Status: Chronic (8) Nicotine dependence Current Visit: Yes Status: Chronic Qualifiers: Nicotine product type: cigarettes Substance use status: uncomplicated Qualified Code(s): F17.210 - Nicotine dependence, cigarettes, uncomplicated (9) Alcohol dependence with uncomplicated withdrawal Current Visit: Yes Status: Acute (10) Drug-induced mood disorder Current Visit: No Status: Acute (11) Skin lesions Current Visit: No Status: Acute (12) Weight loss Current Visit: No Status: Acute (13) Anemia Current Visit: No Status: Chronic Qualifiers: Anemia type: iron deficiency (14) Bipolar disorder Current Visit: No Status: Chronic - AMA Did Patient Leave Against Medical Advice: No
[2018-10-26 09:39] VITALS: BP 108/63; PULSE 73; TEMP 98.1
--- NOTE | 2018-10-26 09:52 | PN ---
S Progress Note Note: Labs regarding the preliminary HIV result discussed with patient. Pt was told that we are waiting for the confirmatory result. Pt is ok and will patiently wait for that result. Pt is confident that she is not HIV+ and has been very careful with her needle use and whom she has any type of contact with. Pt will continue with rehab in our facility. Will continue to follow up.
[2018-10-26] MEDS: FERROUS SO4 325 MG TABLET (FP) PO SCH (10:35)
[2018-10-26] MEDS: PRENATAL VITAMINS W/ FOLIC ACID TABLET (FP) PO SCH (10:35)
[2018-10-26] MEDS: LIDOCAINE 5% TOPICAL PATCH TP SCH (10:36)
== END 2018-10-26 12:04 | disposition other institution (70) | DRG 773 ==
LOC: YASAS 09:49 → Y6N 15:56
PROC: HZ2ZZZZ Detoxification Services for Substance Abuse Treatment (ICD-10-PCS; principal; 2018-10-21)
DX: F11.23 Opioid dependence with withdrawal (principal); F14.20 Cocaine dependence, uncomplicated; F17.210 Nicotine dependence, cigarettes, uncomplicated; F19.24 Other psychoactive substance dependence with psychoactive substance-induced mood disorder; F31.81 Bipolar II disorder; L25.9 Unspecified contact dermatitis, unspecified cause; L98.9 Disorder of the skin and subcutaneous tissue, unspecified; D50.9 Iron deficiency anemia, unspecified; M24.521 Contracture, right elbow; Z88.6 Allergy status to analgesic agent
CPT/HCPCS: 36415; 80053; 85027; 86593; 87389; 90670; 90688; G0008; G0009

== ENCOUNTER 2018-10-26 12:01 | Inpatient (IN) | payer OTHER ==
[2018-10-26 12:22] VITALS: BMI 29.7
[2018-10-26] MEDS ORDERED: NICOTINE POLACRILEX 4 MG GUM BUC PRN (12:57)
[2018-10-26] MEDS ORDERED: MENTHOL/PHENOL 1 EACH UD MM PRN (12:57)
[2018-10-26] MEDS ORDERED: MAG HYDROX/AL HYDROX/SIMETH 30 ML UNIT-DOSE CUP PO PRN (12:57)
[2018-10-26] MEDS ORDERED: LOPERAMIDE HCL 2 MG CAPSULE PO PRN (12:57)
[2018-10-26] MEDS ORDERED: MAGNESIUM CITRATE 300 ML BOTTLE PO PRN (12:57)
[2018-10-26] MEDS ORDERED: MAGNESIUM HYDROX 2400MG/30ML ORAL SUSPENSION 30 ML CUP PO PRN (12:57)
[2018-10-26] MEDS ORDERED: guaiFENesin/D-METHORPHAN HB 10 ML UNIT-DOSE CUPS PO PRN (12:57)
[2018-10-26] MEDS ORDERED: P-EPHED 60MG/TRIPROLIDI 2.5MG TABLET PO PRN (12:57)
[2018-10-26] MEDS ORDERED: ACETAMINOPHEN 325 MG TABLET (FP) PO PRN (12:57)
--- NOTE | 2018-10-26 13:00 | HP ---
[facility] Rehab Assess/Revision - Admission History Admitted to Rehab from: [address] - Vital signs Vital Signs: Vital Signs Period Temp Pulse Resp BP Sys/[place] Pulse Ox Last 24 Hr 97.6 F 66 17 111/72 - Findings Detox History & Physical reviewed: No Concur with findings: No Inpatient Rehab Admission - Initial Determination Are CD services needed?: Yes Free of communicable disease: Yes Not in need of hospitalization: Yes - Rehab Admission Criteria Previous failed treatment: Yes Poor recovery environment: Yes Comorbidities: Yes
[2018-10-26] MEDS: IBUPROFEN 400 MG TABLET (FP) PO PRN (16:27)
[2018-10-26] MEDS: HYDROCORTISONE 1% TOPICAL CREAM 30 GM TUBE TP SCH ×2 (18:30→21:24)
[2018-10-26] MEDS ORDERED: PT OWN MED DRAWER 7, Y5N ONE ×2 (19:06→23:06)
[2018-10-26] MEDS: LIDOCAINE PATCH REMOVAL MC SCH (21:24)
[2018-10-26] MEDS: THIAMINE HCL 100 MG TABLET (FP) PO SCH (21:25)
[2018-10-26] MEDS: MELATONIN 5 MG TABLETS PO PRN (21:25)
[2018-10-26] MEDS: hydrOXYzine PAMOATE 50 MG CAPSULE (FP) PO PRN (21:25)
[2018-10-27] MEDS: IBUPROFEN 400 MG TABLET (FP) PO PRN ×4 (00:19→18:50)
[2018-10-27] MEDS: hydrOXYzine PAMOATE 50 MG CAPSULE (FP) PO PRN ×2 (06:31→19:14)
[2018-10-27] MEDS: FERROUS SO4 325 MG TABLET (FP) PO SCH (07:27)
[2018-10-27] MEDS: HYDROCORTISONE 1% TOPICAL CREAM 30 GM TUBE TP SCH ×4 (09:57→21:30)
[2018-10-27] MEDS: LIDOCAINE 5% TOPICAL PATCH TP SCH (09:57)
[2018-10-27] MEDS: PRENATAL VITAMINS W/ FOLIC ACID TABLET (FP) PO SCH (09:57)
[2018-10-27] MEDS: NICOTINE 21 MG/24 HOURS TOPICAL PATCH TD SCH (09:57)
--- NOTE | 2018-10-27 11:17 | HP ---
Psychiatrist Admission - Data Date of interview: 10/27/18 Admission source: [address] [place] [address] Identifying data: This is the second admission to [facility] inpatient for this 48 years old khmer mother of 6 ,undomiciled,supportive by [facility]. Psychiatric History: Patient obtains psychotropic (Prozac 20 mg po daily and Ambien 10 mg po hs). Physical/Sexual Abuse/Trauma History: Denies Vital Signs: Vital Signs - 24 hr 10/26/18 10/27/18 10/27/18 12:18 04:55 06:48 Temperature 97.6 F 97.9 F Pulse Rate 66 61 Respiratory 17 16 16 Rate Blood Pressure 111/72 92/58 L Allergies/Adverse Reactions: Allergies Allergy/AdvReac Type Severity Reaction Status Date / Time codeine AdvReac Intermediate Rash Verified 10/21/18 15:07 Concur with the findings of this exam: Yes - Substance Abuse/Tx History Hx Alcohol Use: Yes Hx Substance Use: Yes Substance Use Type: Alcohol, Cocaine, Heroin Hx Substance Use Treatment: Yes (completed this program in 2012) Mental Status Exam - Mental Status Exam Alert and Oriented to: Time, Place, Person Cognitive Function: Grossly Intact Patient Appearance: Unkempt Mood: Sad, Anxious Affect: Labile Patient Behavior: Cooperative Speech Pattern: Clear Voice Loudness: Normal Thought Process: Goal Oriented Thought Disorder: Not Present Hallucinations: Denies Suicidal Ideation: Denies Homicidal Ideation: Denies Insight/Judgement: Fair Sleep: Fair Appetite: Good Muscle strength/Tone: Normal Gait/Station: Normal Psychiatric Findings - Problem List ([place] 1, 2,3) (1) Opioid dependence Current Visit: Yes Status: Acute (2) Substance induced mood disorder Current Visit: No Status: Acute (3) Anemia Current Visit: No Status: Chronic (4) Cocaine dependence Current Visit: No Status: Chronic (5) Contact dermatitis Current Visit: No Status: Chronic - Initial Treatment Plan Initial Treatment Plan: Prozac 20 mg po daily
--- NOTE | 2018-10-27 11:31 | PN ---
[facility] Progress Note Note: PATIENT IS A TRANSFER FROM [address] [place] [address] AND ARRIVED TO REHAB UNIT YESTERDAY AFTERNOON. COMPLETED DETOX FOR OPIOD DEPENDENCE AND HAS PENDING CONFIRMATORY HIV TEST. [facility] NOTIFIED AND PATIENT HAS CONSULT SCHEDULED FOR 11/07/18. PATIENT SEEN FOR C/O CHRONIC BACK PAIN AND SCIATICA FROM OLD INJURY. CURRENTLY TREATED WITH LIDOCAINE PATCH. Vital Signs Temperature 97.9 F 10/27/18 06:48 Pulse Rate 61 10/27/18 06:48 Respiratory Rate 16 10/27/18 06:48 Blood Pressure 92/58 L 10/27/18 06:48 O2 Sat by Pulse Oximetry (%) PE: ALERT AND ORIENTED X 3 SKIN WARM AND DRY EXT FULL ROM, NO EDEMA AMB AD LUAN + TENDERNESS TO LS SPINE AREA A/P CHRONIC BACK PAIN WILL ADD FLEXERIL TO REGIMEN CONTINUE TO MONITOR CLINICALLY
[2018-10-27] MEDS: FLUoxetine HCL 20 MG CAPSULE (FP) PO SCH (11:55)
[2018-10-27] MEDS: CYCLOBENZAPRINE HCL 10 MG TABLET (FP) PO SCH ×2 (13:30→21:30)
[2018-10-27] MEDS: LIDOCAINE PATCH REMOVAL MC SCH (21:30)
[2018-10-27] MEDS: MELATONIN 5 MG TABLETS PO PRN (21:30)
[2018-10-27] MEDS: THIAMINE HCL 100 MG TABLET (FP) PO SCH (21:30)
[2018-10-28] MEDS: IBUPROFEN 400 MG TABLET (FP) PO PRN (04:02)
[2018-10-28] MEDS: hydrOXYzine PAMOATE 50 MG CAPSULE (FP) PO PRN (04:04)
[2018-10-28] MEDS: CYCLOBENZAPRINE HCL 10 MG TABLET (FP) PO SCH ×2 (06:50→13:32)
[2018-10-28 07:08] VITALS: BP 101/59; PULSE 57; TEMP 97.4
[2018-10-28] MEDS: FERROUS SO4 325 MG TABLET (FP) PO SCH (07:16)
[2018-10-28] MEDS: FLUoxetine HCL 20 MG CAPSULE (FP) PO SCH (09:40)
[2018-10-28] MEDS: HYDROCORTISONE 1% TOPICAL CREAM 30 GM TUBE TP SCH ×3 (09:40→21:46)
[2018-10-28] MEDS: PRENATAL VITAMINS W/ FOLIC ACID TABLET (FP) PO SCH (09:40)
[2018-10-28] MEDS: NICOTINE 21 MG/24 HOURS TOPICAL PATCH TD SCH (09:40)
[2018-10-28] MEDS: LIDOCAINE 5% TOPICAL PATCH TP SCH (09:40)
[2018-10-28] MEDS ORDERED: PT OWN MED DRAWER 7, Y5N ONE (13:32)
--- NOTE | 2018-10-28 15:08 | PN ---
S Progress Note Note: Psychiatric nurse practitioner note: Patient stating she wants to go home today. Staff encouraged patient to stay but is refusing and wants to leave rehab. Patient is signing out of rehab.
== END 2018-10-28 15:20 | disposition left against medical advice (07) | DRG 770 ==
LOC: YASAS 12:01 → Y3E 12:03
PROVIDERS: ADMIT Psychiatry & Neurology Psychiatry; ATTEND Psychiatry & Neurology Psychiatry
PROC: HZ42ZZZ Group Counseling for Substance Abuse Treatment, Cognitive-Behavioral (ICD-10-PCS; principal; 2018-10-26)
DX: F11.20 Opioid dependence, uncomplicated (principal); F14.20 Cocaine dependence, uncomplicated; F19.24 Other psychoactive substance dependence with psychoactive substance-induced mood disorder; D64.9 Anemia, unspecified; L25.9 Unspecified contact dermatitis, unspecified cause; M54.40 Lumbago with sciatica, unspecified side; G89.29 Other chronic pain